=== PATIENT | female | born 1955 | race Caucasian/White ===

== ENCOUNTER 2021-07-21 08:56 | Outpatient (CLI) | payer BC | END 2021-07-21 08:57 | disposition home or self-care (01) | LOC: CSHMAMMO 08:56 | PROVIDERS: ATTEND Obstetrics & Gynecology | DX: Z08 Encounter for follow-up examination after completed treatment for malignant neoplasm (principal); Z85.3 Personal history of malignant neoplasm of breast | CPT/HCPCS: 77066; G0279 ==

== ENCOUNTER 2021-10-21 09:00 | Outpatient (CLI) | payer BC | END 2021-10-21 09:01 | disposition home or self-care (01) | LOC: CSHMAMMO 09:00 | PROVIDERS: ATTEND Obstetrics & Gynecology | DX: R92.8 Other abnormal and inconclusive findings on diagnostic imaging of breast (principal) | CPT/HCPCS: G0279 ==

== ENCOUNTER 2022-07-22 09:24 | Outpatient (CLI) | payer BC | END 2022-07-22 09:25 | disposition home or self-care (01) | LOC: CSHMAMMO 09:24 | PROVIDERS: ATTEND Family Medicine | DX: Z12.31 Encounter for screening mammogram for malignant neoplasm of breast (principal); Z13.820 Encounter for screening for osteoporosis; M85.851 Other specified disorders of bone density and structure, right thigh; M85.852 Other specified disorders of bone density and structure, left thigh; Z85.3 Personal history of malignant neoplasm of breast; Z98.890 Other specified postprocedural states | CPT/HCPCS: 77063; 77067; 77080 ==

== ENCOUNTER 2023-07-23 09:42 | Outpatient (CLI) | payer BC | END 2023-07-23 09:43 | disposition home or self-care (01) | LOC: CSHMAMMO 09:42 | PROVIDERS: ATTEND Family Medicine | DX: Z12.31 Encounter for screening mammogram for malignant neoplasm of breast (principal); Z85.3 Personal history of malignant neoplasm of breast; Z98.890 Other specified postprocedural states | CPT/HCPCS: 77063; 77067 ==

== ENCOUNTER 2023-09-26 01:21 | Observation (INO) | payer BC, MEDICARE ==
[2023-09-26 01:48] LABS: #Basophils 0.1 10x3/uL (0.0-0.2); #Eosinphils 0.4 10x3/uL (0.0-0.5); #Monocytes 0.8 10x3/uL (0.0-1.1); %Eosinophils 4.6 % (0.0-6.0); %Monocytes 10.7 % (0.0-10.0); %Neutrophils 50.4 % (40.0-75.0); Hematocrit 45.5 % (34.9-44.5); Hemoglobin 15.1 g/dL (12.0-15.5); Mean Corpuscular HGB CONC 33.2 g/dL (32.0-36.0); Mean Corpuscular Volume 87.5 fl (81.6-98.3); Mean Platelet Volume 9.3 fl (7.4-10.4); Platelet Count 258 10x3/uL (150-450); RBC Distribution Width 13.3 % (11.5-14.5); White Blood Cell (WBC) Count 7.9 10x3/uL (3.5-10.5)
[2023-09-26 02:04] LABS: ALT (SGPT) 17 U/L (8-55); AST (SGOT) 22 U/L (5-34); Albumin 4.7 g/dL (3.4-4.8); Alkaline Phosphatase 78 U/L (40-110); Anion Gap 14 mmol/L (10-20); BUN (Urea Nitrogen) 19 mg/dL (9.8-20.1); Bilirubin, Total 0.4 mg/dL (0.2-1.2); Calc. Creatinine Clearance 0 mL/min (70-130); Calcium 9.8 mg/dL (7.8-10.44); Carbon Dioxide 26 mmol/L (23-31); Chloride 102 mmol/L (98-107); Estimated GFR 56; Globulin 3.1 g/dL (2.4-3.5); Glucose 94 mg/dL (80-115); Potassium 3.8 mmol/L (3.5-5.1); Protein, Total 7.8 g/dL (5.8-8.1); Sodium 138 mmol/L (136-145)
[2023-09-26] MEDS ORDERED: hydrALAZINE 20 MG/ML VIAL ONE (03:43)
[2023-09-26] MEDS ORDERED: Calcium Carbonate 500 MG ChewTAB PO PRN (03:55)
[2023-09-26] MEDS ORDERED: Acetaminophen 325 MG TAB PO PRN (03:55)
[2023-09-26] MEDS ORDERED: Senokot S 8.6-50 MG TAB PO PRN (03:55)
[2023-09-26] MEDS ORDERED: Ondansetron PF 4 MG/2 ML Vial IVP PRN (03:55)
[2023-09-26] MEDS ORDERED: hydrALAZINE 20 MG/ML VIAL SLOW IVP PRN (03:57)
[2023-09-26] MEDS ORDERED: Aspirin 325 MG TAB ONE (04:01)
[2023-09-26] MEDS ORDERED: Levothyroxine Sodium 88 MCG TAB PO SCH (06:00)
[2023-09-26] MEDS ORDERED: Aspirin 81 mg Enteric Coated Tablet ONE (07:34)
[2023-09-26 08:11] VITALS: TEMP 97.8
[2023-09-26] MEDS ORDERED: Anastrozole 1 MG TAB PO SCH (09:00)
[2023-09-26] MEDS ORDERED: Amlodipine 10 MG TAB PO SCH (09:00)
[2023-09-26] MEDS ORDERED: Aspirin 81 mg Enteric Coated Tablet PO SCH (09:00)
[2023-09-26] MEDS ORDERED: Losartan 50 MG TAB PO SCH (09:00)
[2023-09-26 09:46] LABS: Cardiac Risk 2.9 (Less than 4.5)
[2023-09-26] MEDS ORDERED: Iopamidol 370 76% 100 ML VIAL ONE (11:31)
[2023-09-26 12:18] LABS: Free T4 (Free Thyroxine) 1.41 ng/dL (0.70-1.48); Thyroid Stimulating Hormone 1.053 uIU/mL (0.35-4.94)
[2023-09-26 14:54] VITALS: BP 153/94
[2023-09-26] MEDS ORDERED: Enoxaparin 40 MG (0.4 mL) SYRINGE SC SCH (21:00)
[2023-09-26] MEDS ORDERED: Atorvastatin Calcium 10 MG TAB PO SCH (21:00)
== END 2023-09-26 15:00 | disposition home or self-care (01) ==
LOC: CSHERS 01:21 → CSHERHOLD 03:41
PROVIDERS: ADMIT Student in an Organized Health Care Education/Training Program; ATTEND Nurse Practitioner Family
DX: G45.9 Transient cerebral ischemic attack, unspecified (principal); I16.1 Hypertensive emergency; I10 Essential (primary) hypertension; E03.9 Hypothyroidism, unspecified; Z79.890 Hormone replacement therapy; Z88.0 Allergy status to penicillin; Z79.899 Other long term (current) drug therapy
CPT/HCPCS: 36415; 36416; 70450; 70486; 70496; 70498; 70551; 71045; 80053; 80061; 84439; 84443; 85025; 86140; 93005; 93010; 93306; 93880; 96374; G0378; J0360; Q9967

== ENCOUNTER 2024-07-24 08:55 | Outpatient (CLI) | payer BC, MEDICARE | END 2024-07-24 08:56 | disposition home or self-care (01) | LOC: CSHMAMMO 08:55 | PROVIDERS: ATTEND Obstetrics & Gynecology | DX: Z12.31 Encounter for screening mammogram for malignant neoplasm of breast (principal); Z85.3 Personal history of malignant neoplasm of breast; Z98.890 Other specified postprocedural states | CPT/HCPCS: 77063; 77067 ==

== ENCOUNTER 2025-07-25 08:48 | Outpatient (CLI) | payer BC | END 2025-07-25 08:49 | disposition home or self-care (01) | LOC: CSHMAMMO 08:48 | PROVIDERS: ATTEND Obstetrics & Gynecology | DX: Z12.31 Encounter for screening mammogram for malignant neoplasm of breast (principal); Z85.3 Personal history of malignant neoplasm of breast; Z98.890 Other specified postprocedural states | CPT/HCPCS: 77063; 77067 ==